=== PATIENT | male | born 1950 | race Caucasian/White ===

== ENCOUNTER → 2022-04-05 09:35 | Outpatient (BNVA) | payer MEDICARE, SELFPAY | PROVIDERS: PCP Clinical Nurse Specialist Adult Health; Visit Provider Clinical Nurse Specialist Adult Health | DX: E06.3 Autoimmune thyroiditis (principal); E34.9 Endocrine disorder, unspecified; R20.2 Paresthesia of skin; R03.0 Elevated blood-pressure reading, without diagnosis of hypertension | CPT/HCPCS: 80053; 80061; 82040; 84270; 84403; 84436; 84443; 84481; 85025; 85651; 86140 ==

== ENCOUNTER → 2022-05-29 14:22 | Outpatient (BNVA) | payer MEDICARE, SELFPAY | PROVIDERS: PCP Clinical Nurse Specialist Adult Health; Referring Provider Clinical Nurse Specialist Adult Health; Visit Provider Specialist | DX: G56.03 Carpal tunnel syndrome, bilateral upper limbs (principal) | CPT/HCPCS: 95910; 95912 ==

== ENCOUNTER 2022-06-24 15:26 | Outpatient (CLI) | payer MEDICARE, SELFPAY ==
--- NOTE | 2022-06-24 15:44 | XRR_ITS ---
PROCEDURE INFORMATION: Exam: XR Right Elbow Exam date and time: 06/24/2022 4:18 PM Age: 72 years old Clinical indication: Right; Patient HX: RT elbow pain x 2 months or so. Pain is medial at condyle; Additional info: Right elbow pain TECHNIQUE: Imaging protocol: Radiologic exam of the right elbow. Views: 3 or more views. COMPARISON: No relevant prior studies available. FINDINGS: Bones/joints: No acute fracture or other acute osseous abnormality. No joint narrowing, dislocation, or effusion noted. Soft tissues: Calcification of the common extensor and common flexor tendons noted, consistent with calcific tendinitis. No acute soft tissue abnormality demonstrated. XR/XR elbow RT min 3V* [id number] IMPRESSION: 1. Calcification of the common extensor and common flexor tendons noted, consistent with calcific tendinitis. 2. No acute osseous abnormality noted.
== END 2022-06-24 15:27 | disposition home or self-care (01) ==
PROVIDERS: PCP Clinical Nurse Specialist Adult Health; Visit Provider Clinical Nurse Specialist Adult Health
DX: M25.521 Pain in right elbow (principal)
CPT/HCPCS: 73080; 81000

== ENCOUNTER → 2022-07-01 10:29 | Outpatient (BNVA) | payer MEDICARE, SELFPAY | PROVIDERS: PCP Clinical Nurse Specialist Adult Health; Referring Provider Clinical Nurse Specialist Adult Health; Visit Provider Student in an Organized Health Care Education/Training Program | DX: G56.03 Carpal tunnel syndrome, bilateral upper limbs (principal) | CPT/HCPCS: 20526; 73130; 99204; J3301; J3490 ==

== ENCOUNTER 2022-07-01 15:05 | Outpatient (CLI) | payer MEDICARE, SELFPAY | END 2022-07-01 15:06 | disposition home or self-care (01) | LOC: SPT 15:11 | PROVIDERS: PCP Clinical Nurse Specialist Adult Health; Visit Provider Student in an Organized Health Care Education/Training Program | DX: Z46.89 Encounter for fitting and adjustment of other specified devices (principal); G56.03 Carpal tunnel syndrome, bilateral upper limbs | CPT/HCPCS: 97760; L3908 ==

== ENCOUNTER → 2022-08-21 11:37 | Outpatient (BNVA) | payer MEDICARE, SELFPAY | PROVIDERS: PCP Clinical Nurse Specialist Adult Health; Visit Provider Clinical Nurse Specialist Adult Health | DX: E06.3 Autoimmune thyroiditis (principal); E55.9 Vitamin D deficiency, unspecified | CPT/HCPCS: 80048; 82306; 84436; 84443; 84481 ==

== ENCOUNTER 2022-08-26 11:29 | Outpatient (CLI) | payer MEDICARE, SELFPAY | END 2022-08-26 11:30 | disposition home or self-care (01) | LOC: SPT 11:30 | PROVIDERS: PCP Clinical Nurse Specialist Adult Health; Visit Provider Student in an Organized Health Care Education/Training Program | DX: G56.03 Carpal tunnel syndrome, bilateral upper limbs (principal); Z46.89 Encounter for fitting and adjustment of other specified devices | CPT/HCPCS: 97760; 99213; L3908 ==

== ENCOUNTER → 2022-12-25 09:38 | Outpatient (BNVA) | payer MEDICARE, SELFPAY | PROVIDERS: PCP Clinical Nurse Specialist Adult Health; Visit Provider Family Medicine | DX: E06.3 Autoimmune thyroiditis (principal); Z86.39 Personal history of other endocrine, nutritional and metabolic disease; E34.9 Endocrine disorder, unspecified; M25.551 Pain in right hip; M25.552 Pain in left hip; G89.29 Other chronic pain; H61.92 Disorder of left external ear, unspecified; I47.9 Paroxysmal tachycardia, unspecified; G56.03 Carpal tunnel syndrome, bilateral upper limbs; E55.9 Vitamin D deficiency, unspecified | CPT/HCPCS: 80053; 80061; 82040; 84270; 84403; 84439; 84443; 85025; 86376 ==

== ENCOUNTER 2023-01-15 11:57 | Outpatient (RCR) | payer MEDICARE, SELFPAY | END 2023-01-21 23:59 | disposition home or self-care (01) | LOC: SPT 11:57 | PROVIDERS: PCP Family Medicine; Visit Provider Family Medicine | DX: M25.551 Pain in right hip (principal); M25.552 Pain in left hip; G89.29 Other chronic pain | CPT/HCPCS: 97110; 97161 ==

== ENCOUNTER 2023-01-22 06:00 | Outpatient (RCR) | payer MEDICARE, SELFPAY | END 2023-02-20 23:59 | disposition home or self-care (01) | LOC: SPT 06:00 | PROVIDERS: PCP Family Medicine; Visit Provider Family Medicine | DX: M25.551 Pain in right hip (principal); M25.552 Pain in left hip; G89.29 Other chronic pain | CPT/HCPCS: 97530 ==

== ENCOUNTER 2023-02-21 06:00 | Outpatient (RCR) | payer MEDICARE, SELFPAY | END 2023-02-25 23:59 | disposition home or self-care (01) | LOC: SPT 06:00 | PROVIDERS: PCP Family Medicine; Visit Provider Family Medicine | DX: M25.551 Pain in right hip (principal); M25.552 Pain in left hip; G89.29 Other chronic pain | CPT/HCPCS: 97110; 97530 ==

== ENCOUNTER 2023-03-26 10:02 | Emergency (ER) | payer MEDICARE, SELFPAY ==
[2023-03-26 10:13] VITALS: BP 154/90; PULSE 63; TEMP 37.1; O2SAT 99; BMI 22.8
--- NOTE | 2023-03-26 11:38 | CTR_ITS ---
PROCEDURE INFORMATION: Exam: CT Head Without Contrast Exam date and time: 03/26/2023 1:39 PM Age: 73 years old Clinical indication: Dizziness TECHNIQUE: Imaging protocol: Computed tomography of the head without contrast. Radiation optimization: All CT scans at this facility use at least one of these dose optimization techniques: automated exposure control; mA and/or kV adjustment per patient size (includes targeted exams where dose is matched to clinical indication); or iterative reconstruction. COMPARISON: No relevant prior studies available. RADIATION DOSE METRICS: Total DLP (mGy-cm): 1072 FINDINGS: Brain: Mild areas of low-attenuation in the white matter most likely representing small vessel ischemic change. No evidence of mass effect, intracranial hemorrhage or extra-axial collection. No acute infarct. Cerebral ventricles: Unremarkable for age. Paranasal sinuses: No significant pathology. Mastoid air cells: No significant pathology. Bones/joints: No significant pathology. Soft tissues: No significant pathology. CT/CT head wo con* [id number] IMPRESSION: No acute pathology.
[2023-03-26 12:34] LABS: Basophils # 0.1 10^3/uL (0.0-0.1); Basophils % 0.9 %; Eosinophils % 0.4 %; Hematocrit 41.2 % (37-53); Lymphocytes # 1.3 10^3/uL (0.8-4.8); Lymphocytes % 24.6 %; Mean Corpuscular Hemoglobin 30.6 pg (27-33); Mean Corpuscular Volume 92.8 fl (82-101); Mean Platelet Volume 10.3 fL (7.4-10.4); Monocytes # 0.5 10^3/uL (0.2-0.9); Monocytes % 9.6 %; Neutrophils # 3.39 10^3/uL (1.8-7.7); Neutrophils % 64.1 %; Nucleated Red Blood Cells % 0 %; Platelet Count 206 10^3/cmm (157-399); Red Blood Count 4.44 10^6/uL (3.85-5.65); Red Cell Distribution Width 14.1 % (12.1-15.1); White Blood Count 5.29 10^3/uL (3.29-11.43)
[2023-03-26 12:50] LABS: Anion Gap 11.4 (5-19); Blood Urea Nitrogen 26 mg/dL (8-23); Calcium 8.8 mg/dL (8.5-10.5); Carbon Dioxide 26 mmol/L (22-29); Chloride 105 mmol/L (98-107); Glucose 109 mg/dL (65-115); Osmolality Calculated 291 mOsm/kg (285-295); Potassium 4.4 mmol/L (3.5-5.1); Sodium 138 mmol/L (136-145)
--- NOTE | 2023-03-26 15:59 | W.ED.DIZZY ---
HPI - Dizziness General: Chief Complaint: Dizziness Stated Complaint: dizzy, chills, head pain Time Seen by Provider: 03/26/23 15:54 History of Present Illness: HPI Narrative: 73-year-old male patient comes in today with an episode of dizziness when he bent over to get something off the floor this morning. Patient reports that it has resolved since arriving at the ER. Patient appears nontoxic. Patient appears in no pain. Patient has some history of thyroid and hormone replacement. Patient denies headache or severe chest pain. Associated symptoms: Reports nasal congestion; Denies chest pain, headache(s), nausea or vomiting Review of Systems General: Reports: 10 or more systems reviewed and unremarkable except in HPI and below Const: Denies: fever(s) ENMT: Reports: nasal congestion Card: Denies: chest pain Resp: Denies: dyspnea GI: Denies: nausea or vomiting Musc: Denies: neck pain Skin/Breast: Denies: rash or pruritus Neuro: Reports: dizziness; Denies: headache(s) Psych: Denies: anxiety or depression PFSH ED PFSH: Medical History Vitamin D deficiency Testosterone deficiency Generalized osteoarthritis Squamous cell carcinoma of skin (~12/25/22) Basal cell carcinoma Geographic tongue Yesenia's disease Surgical History History of hernia surgery History of back surgery S1 decompression Family History Father Cancer brain Other Hyperlipidemia Denies family history of Diabetes CAD (coronary artery disease) Clotting disorder Dementia Psychiatric illness Chronic kidney disease (CKD) Anesthesia complication Bleeding disorder Lung disease Hypertension Stroke Social History Smoking and tobacco/nicotine status: never used tobacco/nicotine Alcohol intake: never Substance/Drug Use: never Lives independently: Yes Marital status: Number of children: 2 Current occupational status: retired Brenna/Caodaism: Mormonism Special brenna needs: No Agree to transfusion: Yes Physical Exam Const: COMMON NORMALS: alert HENMT: COMMON NORMALS: normocephalic HEAD & SCALP: normocephalic THROAT: posterior oropharynx abnormal and postnasal drainage Neck/C-Spine: COMMON NORMALS: full ROM Resp: COMMON NORMALS: normal respiratory effort and clear to auscultation bilaterally AUSCULTATION: clear to auscultation bilaterally Cardio: COMMON NORMALS: regular rate and regular rhythm RATE: regular rate RHYTHM: regular rhythm GI: COMMON NORMALS: Soft to palpation PALPATION: Yes Soft to palpation : COMMON NORMALS: Yes no CVA tenderness BLADDER/KIDNEY EXAM: Yes no CVA tenderness Back/Pelvis: COMMON NORMALS: no CVA tenderness Extremity: COMMON NORMALS: normal to inspection Neuro: SENSORIUM/ORIENTATION: Yes alert Skin: COMMON NORMALS: turgor normal GENERAL SKIN EXAM: turgor normal Course Vital Signs: Vital signs: Vital Signs Temperature 98.7 F 03/26/23 10:13 Pulse Rate 63 03/26/23 10:13 Blood Pressure 154/90 03/26/23 10:13 Pulse Oximetry 99 03/26/23 10:13 Oxygen Delivery Me thod Room Air 03/26/23 10:13 [facility] - Dizziness Medical Decision Making 73-year-old male patient comes in today with complaints of dizziness when he bent over this morning. Patient reports symptoms have improved since this afternoon. On exam patient has fluid behind both tympanic membranes. Patient has postnasal drainage in the posterior pharynx. Patient has cobblestoning on posterior pharynx. Lungs are clear to auscultation. Skin is warm and dry. Vital signs are normal. Differential diagnosis includes but not limited to rhinosinusitis, stroke syndrome, intracranial bleeding, BPV. CT of the head was normal. CBC and CMP were unremarkable. Patient will be treated for a rhinosinusitis with Augmentin, fluticasone spray, and meclizine as needed for dizziness. Patient was recommended to follow-up with primary care. Patient was stable and was able to ambulate without difficulty. Patient was discharged home. Lab Data 03/26/23 12:18 03/26/23 12:[address] 03/26/23 11:38 IMPRESSION: No acute pathology. Laboratory Results WBC 5.29 10^3/uL (3.29-11.43) 03/26/23 12:18 RBC 4.44 10^6/uL (3.85-5.65) 03/26/23 12:18 Hgb 13.60 g/dL (11.27-16.99) 03/26/23 12:18 Hct 41.2 % (37-53) 03/26/23 12:18 MCV 92.8 fl (82-101) 03/26/23 12:18 MCH 30.6 pg (27-33) 03/26/23 12:18 MCHC 33.0 g/dL (30-55) 03/26/23 12:18 RDW 14.1 % (12.1-15.1) 03/26/23 12:18 Plt Count 206 10^3/cmm (157-399) 03/26/23 12:18 MPV 10.3 fL (7.4-10.4) 03/26/23 12:18 Neut % (Auto) 64.1 % 03/26/23 12:18 Lymph % (Auto) 24.6 % 03/26/23 12:18 Bulloch % (Auto) 9.6 % 03/26/23 12:18 Eos % (Auto) 0.4 % 03/26/23 12:18 Baso % (Auto) 0.9 % 03/26/23 12:18 Neut # (Auto) 3.39 10^3/uL (1.8-7.7) 03/26/23 12:18 Lymph # (Auto) 1.3 10^3/uL (0.8-4.8) 03/26/23 12:18 Bulloch # (Auto) 0.5 10^3/uL (0.2-0.9) 03/26/23 12:18 Eos # (Auto) 0.0 10^3/uL (0.0-0.8) 03/26/23 12:18 Baso # (Auto) 0.1 10^3/uL (0.0-0.1) 03/26/23 12:18 Nucleated RBC % (auto) 0 % 03/26/23 12:18 Nucleated RBCs # 0.0 /100WBC 03/26/23 12:18 Sodium 138 mmol/L (136-145) 03/26/23 12:18 Potassium 4.4 mmol/L (3.5-5.1) 03/26/23 12:18 Chloride 105 mmol/L (98-107) 03/26/23 12:18 Carbon Dioxide 26 mmol/L (22-29) 01/03/24 12:18 Anion Gap 11.4 (5-19) 03/26/23 12:18 BUN 26 mg/dL (8-23) H 03/26/23 12:18 Creatinine 0.9 mg/dL (0.7-1.2) 03/26/23 12:18 GFR Calculation Not Reportable 03/26/23 12:18 Glucose 109 mg/dL (65-115) 03/26/23 12:18 Calculated Osmolality 291 mOsm/kg (285-295) 03/26/23 12:18 Calcium 8.8 mg/dL (8.5-10.5) 03/26/23 12:18 All radiology interpretation(s) finalized by discharge Discharge Plan Discharge Patient Disposition: Home Clinical Impression: Acute rhinosinusitis, Dizziness Condition: Stable Prescriptions: New amoxicillin-pot clavulanate 875-125 mg tablet 1 tab PO BID Qty: 14 0RF meclizine 25 mg tablet 25 mg PO TID PRN (Reason: dizziness) Qty: 10 0RF fluticasone propionate 50 mcg/actuation spray,suspension 1 spray intranasal BID Qty: 16 0RF Rx Instructions: administer into each nostril No Action testosterone cypionate [Depo-Testosterone] 100 mg/mL oil 100 mg SUBCUT Q14D minocycline 100 mg capsule 100 mg PO BID 10 Days Qty: 20 0RF thyroid (pork) 90 mg tablet See Rx Instructions .ROUTE .COMPLEX Qty: 30 0RF Dose Instruction: TAKE 1 TABLET BY MOUTH DAILY Rx Instructions: TAKE 1 TABLET BY MOUTH DAILY Discharge Orders: Discharge ED (Routine); Ordered 03/26/23 Ordered By: Drew Peterson Referrals: Jonathan Kc MD [Primary Care Provider] - Discharge Diet: Usual diet Discharge Activity: Increase activity as tolerated Patient Instructions: Rhinosinusitis (ED) Activity Restrictions/Additional Instructions: Take antibiotic as directed. Use Augmentin 1 tablet twice a day for 7 days for sinus infection. Use Flonase nasal spray to help with nasal drainage and fluid in the middle ear. Use meclizine as needed for severe dizziness. Drink plenty of water and fluids. Follow-up with primary care as needed. Return to ED for worsening symptoms such as severe headache, fever greater than 100.4, or new concerns. Coding Level of Care Code ED Elevator Constructor Electric for Lou Coy
== END 2023-03-26 16:52 | disposition home or self-care (01) ==
PROVIDERS: Emergency Medicine; Emergency Provider Nurse Practitioner Family; PCP Family Medicine
DX: R42 Dizziness and giddiness (principal); J01.90 Acute sinusitis, unspecified
CPT/HCPCS: 36415; 70450; 80048; 85025; 99284

== ENCOUNTER → 2023-05-27 11:48 | Outpatient (BNVA) | payer MEDICARE, SELFPAY | PROVIDERS: PCP Family Medicine; Visit Provider Family Medicine | DX: E06.3 Autoimmune thyroiditis (principal); E34.9 Endocrine disorder, unspecified | CPT/HCPCS: 84403; 84439; 84443 ==

== ENCOUNTER 2023-05-30 15:55 | Outpatient (CLI) | payer MEDICARE, SELFPAY ==
--- NOTE | 2023-05-30 16:15 | USR_ITS ---
PROCEDURE INFORMATION: Exam: US Duplex Right Lower Extremity Veins, Limited Exam date and time: 05/30/2023 4:30 PM Age: 73 years old Clinical indication: Other: Venous pooling TECHNIQUE: Imaging protocol: Real-time duplex ultrasound of the right extremity with 2-D granda scale, color Doppler flow and spectral waveform analysis including responses to compression and other maneuvers (when performed) with image documentation. Limited exam was focused on the right lower extremity veins. COMPARISON: No relevant prior studies available. FINDINGS: Right deep veins: Unremarkable. The common femoral, femoral, proximal profunda femoral and popliteal veins are patent without thrombus. Normal Doppler waveforms. Normal compressibility and/or augmentation response. Superficial veins: Small saphenous vein is occluded. The greater saphenous vein is patent. Soft tissues: Unremarkable. US/[place] [id number] IMPRESSION: 1. Superficial vein thrombosis in the calf (small saphenous vein occlusion). 2. No deep vein thrombosis.
== END 2023-05-30 15:56 | disposition home or self-care (01) ==
PROVIDERS: PCP Family Medicine; Visit Provider Family Medicine
DX: I87.2 Venous insufficiency (chronic) (peripheral) (principal); I82.811 Embolism and thrombosis of superficial veins of right lower extremity
CPT/HCPCS: 93971

== ENCOUNTER 2023-06-02 08:41 | Outpatient (CLI) | payer MEDICARE, SELFPAY ==
--- NOTE | 2023-06-02 08:45 | USCV_ITS ---
Zaid Dyer Age: 73 Gender: M : 1950 Exam Date: 06/02/2023 08:49 Ordering Phys: Jonathan Kc MD Technologist: Exam Location: [facility] Indication: pad Risk Factors: Previous Vascular Surgery: RIGHT LEFT BP: 150.0 / 80.00 BP: 150.0/ 80.00 0 0 Waveform Velocity (cm/s) Velocity (cm/s) Waveform Triphasic 137.0 Iliac Prox Triphasic 112.0 Iliac Mid Triphasic 101.0 Iliac Distal Triphasic VP ACCOUNT DIRECTOR 104.0 Triphasic 89.0 SFA Prox Triphasic 89.0 SFA Mid Biphasic 92.0 SFA Dist Biphasic 58.0 POP Biphasic 71.0 SCHOOL PSYCHOMETRIST Biphasic 41.0 DPA 1.1 TERESA FINDINGS rt barge captain 160 rt dpa 160 The resting TERESA on the right side is 1.1 Intimal thickening and minimal plaques were noted in the iliac, femoral and popliteal arteries, on the right side CONCLUSIONS Normal resting TERESA on the right side. Normal Doppler flow velocities and near normal Doppler waveforms Intimal thickening and minimal plaques in the iliac, femoral and popliteal arteries on the right side No significant arterial obstruction, based on the above finding Dr Stefano García MD [facility] (Electronically Signed) Final Date: 03 June 2023 09:55 S
== END 2023-06-02 08:42 | disposition home or self-care (01) ==
LOC: RAD 08:42
PROVIDERS: PCP Family Medicine; Visit Provider Family Medicine
DX: I73.9 Peripheral vascular disease, unspecified (principal)
CPT/HCPCS: 93926

== ENCOUNTER → 2023-09-19 09:13 | Outpatient (BNVA) | payer MEDICARE, SELFPAY | PROVIDERS: PCP Family Medicine; Referring Provider Family Medicine; Visit Provider Surgery | DX: R03.0 Elevated blood-pressure reading, without diagnosis of hypertension (principal); K92.2 Gastrointestinal hemorrhage, unspecified | CPT/HCPCS: 99204 ==

== ENCOUNTER → 2023-09-30 09:07 | Outpatient (BNVA) | payer MEDICARE, SELFPAY | PROVIDERS: PCP Family Medicine; Visit Provider Family Medicine | DX: B35.1 Tinea unguium (principal); E06.3 Autoimmune thyroiditis | CPT/HCPCS: 80053; 84439; 84443 ==

== ENCOUNTER 2023-11-04 12:58 | Outpatient (CLI) | payer MEDICARE, SELFPAY ==
--- NOTE | 2023-11-04 13:17 | XR_ITS ---
WS: [id number] Examination: XR hip RT 2-3V wo/w pel* [id number] Reason for Exam: hip pain Date: November 04, 2023 Comparison: None. Findings: The bone density is maintained without destruction. There is no fracture or dislocation. The joint spaces generally well maintained. Degenerative changes are present. Acetabular and femoral head osteophytes are noted. XR/XR hip RT 2-3V wo/w pel* [id number] Impression: No acute bony abnormality is identified. Mild degenerative changes are present.
== END 2023-11-04 12:59 | disposition home or self-care (01) ==
PROVIDERS: PCP Family Medicine; Visit Provider Family Medicine
DX: M16.11 Unilateral primary osteoarthritis, right hip (principal); M25.751 Osteophyte, right hip
CPT/HCPCS: 73502

== ENCOUNTER → 2023-11-17 11:13 | Outpatient (BNVA) | payer MEDICARE, SELFPAY | PROVIDERS: PCP Family Medicine; Visit Provider Specialist | DX: M25.551 Pain in right hip (principal) | CPT/HCPCS: 73502; 99204 ==

== ENCOUNTER → 2023-11-18 16:08 | Outpatient (BNVA) | payer MEDICARE, SELFPAY | PROVIDERS: PCP Family Medicine; Visit Provider Emergency Medicine | DX: R09.81 Nasal congestion (principal) | CPT/HCPCS: 87426 ==

== ENCOUNTER → 2023-12-02 10:41 | Outpatient (BNVA) | payer MEDICARE, SELFPAY | PROVIDERS: PCP Family Medicine; Referring Provider Specialist; Visit Provider Orthopaedic Surgery | DX: M54.50 Low back pain, unspecified (principal); G89.29 Other chronic pain | CPT/HCPCS: 72110; 99204 ==

== ENCOUNTER 2024-01-06 07:21 | Day surgery (SDC) | payer MEDICARE, SELFPAY ==
[2024-01-06 07:34] VITALS: TEMP 36.2; BMI 24.3
--- NOTE | 2024-01-06 07:40 | ANES.PREANE2 ---
Pre-Anesthetic Assessment Height/Weight: Height 1.73 m Weight 72.575 kg Temp O2 Del Method 97.1 F L Room Air 01/06/24 07:34 01/06/24 07:34 Operation Date: 01/06/24 08:20 Proposed Procedures p EGD 59864,K92.2(Not Applicable) - Pepe Antony MD Familial anesthetic complications: None Was Beta Bony taken within 24 hours: N/A Was Clonidine taken within 24 hours: N/A Last intake: Intake Last Liquid Date 01/05/24 Last Liquid Time 18:00 Last Solid Date 01/05/24 Last Solid Time 18:00 Social No alcohol and No tobacco Exam alert, oriented x 3, clear to auscultation bilaterally and regular rate & rhythm Airway Submandibular: within normal limits Cervical ROM: within normal limits Dentition: full History/ROS No significant history except as noted and No significant complaints Pulmonary None reported CV/HEM Arrythmia None reported Hepatic None reported GI Gastroesophageal Reflux Disease Hx GI bleed Metabolic Thyroid Disease ([place]) Musc/skel Osteoarthritis/DJD Neuropsych Neuropathy Anesthetic Plan ASA status: 2 Anesthesia: Anesthesia Evaluation, General and MAC Risk of > 500 ml blood loss (7ml/kg in children): No Medications/Allergies Home Medications Medication Instructions Recorded Confirmed Last Taken Type thyroid (pork) 90 mg tablet 90 mg PO DAILY #90 tabs 11/20/23 01/06/24 01/05/24 Rx pantoprazole 20 mg tablet,delayed 20 mg PO BID 01/01/24 01/06/24 01/05/24 History release Allergies Allergy/AdvReac Type Severity Reaction Status Date / Time No Known Allergies Allergy Verified 01/06/24 07:32 [facility] Anesthesia Medical History Right foot drop Vitamin D deficiency Testosterone deficiency Generalized osteoarthritis Squamous cell carcinoma of skin (~12/25/22) Basal cell carcinoma Geographic tongue Yesenia's disease Surgical History History of hernia surgery History of back surgery S1 decompression Family History Father Cancer brain Other Hyperlipidemia Denies family history of Diabetes CAD (coronary artery disease) Clotting disorder Dementia Psychiatric illness Chronic kidney disease (CKD) Anesthesia complication Bleeding disorder Lung disease Hypertension Stroke Social History Smoking and tobacco/nicotine status: unknown if used tobacco/nicotine Alcohol intake: never Substance/Drug Use: never Lives independently: Yes Marital status: Number of children: 2 Current occupational status: retired Brenna/Orthodoxy: Worship Special brenna needs: No Agree to transfusion: Yes Data Anesthesia Cardiac Studies: No Data to Display
[2024-01-06] MEDS: sodium chloride 0.9% 1,000 ML 30 ML IV (07:45)
--- NOTE | 2024-01-06 08:02 | W.PM.OPSFHP ---
Same Day Surgery H&P Indication for Procedure/HPI DATE OF PROCEDURE: January 06, 2024 CHIEF COMPLAINT/INDICATIONFOR SURGICAL PROCEDURE: GERD and history of GI bleeding PREOP DIAGNOSIS: GERD PLANNED PROCEDURE: Operation Date: 01/06/24 08:20 Proposed Procedures p EGD 78057,K92.2(Not Applicable) - Pepe Antony MD Medications/Allergies* Home Medications Medication Instructions Recorded Confirmed Type pantoprazole 20 mg tablet,delayed 20 mg PO BID 01/01/24 01/06/24 History release Allergies/Adverse Reactions Allergy/AdvReac Type Severity Reaction Status Date / Time No Known Allergies Allergy Verified 01/06/24 07:32 Current Medications: Generic Name Dose Route Start Last Admin Trade Name Freq PRN Reason Stop Dose Admin Sodium Chloride 1,000 mls @ 30 mls/hr 01/06/24 07:30 01/06/24 07:45 Sodium Chloride 0.9% IV 30 mls/hr .Q24H CHOLO Administration Pertinent History/Comorbid Conditions* Medical History (Updated 10/31/23 @ 15:30 by Jonathan Kc MD) Right foot drop Vitamin D deficiency Testosterone deficiency Generalized osteoarthritis Squamous cell carcinoma of skin (~12/25/22) Basal cell carcinoma Geographic tongue Yesenia's disease Surgical History (Updated 01/08/22 @ 08:37 by Gareth Diaz NP) History of hernia surgery History of back surgery S1 decompression Family History (Updated 12/25/22 @ 08:58 by Ameena Salazar LPN) Hyperlipidemia Cancer Father brain Denies family history of Diabetes CAD (coronary artery disease) Clotting disorder Dementia Psychiatric illness Chronic kidney disease (CKD) Anesthesia complication Bleeding disorder Lung disease Hypertension Stroke Social History Smoking and tobacco/nicotine status: unknown if used tobacco/nicotine Alcohol intake: never Substance/Drug Use: never Lives independently: Yes Marital status: Number of children: 2 Current occupational status: retired Brenna/Pentecostal: Oriental [employer] Special brenna needs: No Agree to transfusion: Yes Pertinent Exam Findings alert, oriented x 3, clear to auscultation bilaterally and regular rate & rhythm Recommendations Surgery/Procedure today Coding Level of Care Code Acute Code for Chg Fwd
[2024-01-06 08:27] VITALS: BP 99/54; PULSE 52; RESP 14; TEMP 36.4; O2SAT 98
--- NOTE | 2024-01-06 08:28 | ANE.PACU2 ---
Inpatient post-anesthesia follow up: Airway intact: Yes Vital signs: Temperature 97.6 F Pulse Rate 56 Respiratory Rate 16 Blood Pressure 101/68 Pulse Oximetry 96 Oxygen Delivery Me thod Room Air Oxygen Flow Rate Fraction of Inspir ed Oxygen Hydration adequate: Yes Nausea and vomiting: No Pain level: 1 Mental status: Baseline
[2024-01-06 08:45] VITALS: BP 109/56; PULSE 55; RESP 17; O2SAT 96
[2024-01-06 09:14] VITALS: BP 101/68; PULSE 56; RESP 16; O2SAT 96
== END 2024-01-06 09:28 | disposition home or self-care (01) ==
PROVIDERS: PCP Family Medicine; Visit Provider Surgery
PROC: 0DJ08ZZ Inspection of Upper Intestinal Tract, Via Natural or Artificial Opening Endoscopic (ICD-10-PCS; CPT 43235; principal; 2024-01-06 08:20)
DX: K29.50 Unspecified chronic gastritis without bleeding (principal); K21.9 Gastro-esophageal reflux disease without esophagitis
CPT/HCPCS: 43239; 88305; 88342; J2704; J7030

== ENCOUNTER → 2024-01-20 08:43 | Outpatient (BNVA) | payer MEDICARE, SELFPAY | PROVIDERS: PCP Family Medicine; Visit Provider Surgery | DX: Z09 Encounter for follow-up examination after completed treatment for conditions other than malignant neoplasm (principal); R03.0 Elevated blood-pressure reading, without diagnosis of hypertension | CPT/HCPCS: 99213 ==